=== PATIENT | male | born 1995 | race Caucasian/White ===

== ENCOUNTER 2018-05-05 11:54 | Emergency (ER) | payer BC, OTHER ==
[2018-05-05] MEDS: LIDOCAINE 1%/EPI (MDV) 50 ML INJ INJ (12:54)
== END 2018-05-05 14:06 | disposition home or self-care (01) ==
LOC: FTE 11:54
DX: S60.551A Superficial foreign body of right hand, initial encounter (principal); W45.8XXA Other foreign body or object entering through skin, initial encounter; Y92.9 Unspecified place or not applicable
CPT/HCPCS: 10120; 99283-25

== ENCOUNTER 2018-05-07 10:16 | Emergency (ER) | payer BC | END 2018-05-07 10:51 | disposition home or self-care (01) | LOC: FTE 10:16 | DX: Z48.01 Encounter for change or removal of surgical wound dressing (principal) | CPT/HCPCS: 99281; Z7502 ==

== ENCOUNTER 2018-05-12 11:41 | Emergency (ER) | payer BC | END 2018-05-12 14:20 | disposition home or self-care (01) | LOC: FTE 11:41 | DX: Z48.02 Encounter for removal of sutures (principal) | CPT/HCPCS: 99281; Z7502 ==